=== PATIENT | female | born 1970 | race Hispanic/Latino ===

== ENCOUNTER 2018-01-15 09:43 | Observation (INO) | payer BC, OTHER ==
--- NOTE | 2018-01-15 10:21 | EKG ---
Test Date: 2018-01-15 Test Time: 09:59:21 Government Auditor: BUCKY MEASUREMENT RESULTS: Intervals: Rate: 89 WI: 156 QRSD: 88 QT: 352 QTc: 428 [place]: P: 69 WI: 156 QRS: 4 T: 59 INTERPRETIVE STATEMENTS: Normal sinus rhythm Normal ECG Compared to ECG 03/17/2014 16:21:40 No significant changes Electronically Signed On 01-15-18 10:20:30 CDT by Meir Youngblood
[2018-01-15 10:33] LABS: Absolute Lymphocytes (CBC) 1.5 K/uL (0.7-4.9); Absolute Monocytes 0.5 K/uL (0.1-1.3); Absolute Neutrophil 9.5 K/uL (1.8-8.0); Eosinophils % 0.1 % (0-4.4); Hematocrit 42.2 % (36.0-45.0); Lymphocytes % 12.5 % (15.3-44.8); MCH 29.9 pg (27.0-35.0); MCV 90.6 fL (80-100); MPV 8.3 fL (7.6-11.3); Monocytes % 4.6 % (3.3-12.3); RBC Red Blood Cell Count 4.65 M/uL (3.86-4.86)
[2018-01-15 10:43] LABS: Protime INR 1.04
--- NOTE | 2018-01-15 10:43 | RAD REPORT ---
EXAM DESCRIPTION: Skyla Single View01/15/2018 10:27 am CLINICAL HISTORY: Chest pain COMPARISON: none FINDINGS: The lungs appear clear of acute infiltrate. The heart is normal size IMPRESSION: No acute abnormalities displayed
[2018-01-15 10:58] LABS: Bicarbonate 26 mEq/L (21-31); Glucose Level 87 mg/dL (65-120); Lipase 15 U/L (22-51); Potassium 3.6 mEq/L (3.6-5.0); Sodium Level 139 mEq/L (135-145)
[2018-01-15 11:04] LABS: ALT/SGPT 27 IU/L (10-60); AST/SGOT 26 IU/L (10-42); Albumin 3.9 g/dL (3.2-5.5); Alkaline Phosphatase 60 IU/L (42-121); BUN Blood Urea Nitrogen 15 mg/dL (6-20); Bilirubin Direct 0.1 mg/dL (0-0.2); Bilirubin Total 0.5 mg/dL (0.3-1.2); Creatine Phosphokinase 133 IU/L (22-269); Glomerular Filtration Rate > 90 mL/min (=/>90); Magnesium 1.6 mg/dL (1.8-2.5); Protein, Total 6.9 g/dL (6.0-8.3)
[2018-01-15 11:06] LABS: CKMB Creatine Kinase MB 0.6 ng/ml (0.3-4.0)
[2018-01-15] MEDS ORDERED: ASPIRIN 81 MG CHEWABLE TABLET ONE (11:08)
[2018-01-15] MEDS ORDERED: METOPROLOL TAR 25 MG TAB ONE (11:30)
[2018-01-15] MEDS ORDERED: ONDANSETRON 4 MG/2 ML VIAL ONE (11:30)
[2018-01-15] MEDS ORDERED: MORPHINE 4 MG/ML SYR ONE ×2 (11:30→14:46)
--- NOTE | 2018-01-15 11:31 | ER ---
Nurse's Notes [facility] Name: Nelly Casey Age: 47 yrs Sex: Female : 1970 Arrival Date: 01/15/2018 Time: 09:44 Bed 17 Private MD: Christian Chan H Diagnosis: Chest pain, unspecified;Multiple fractures of ribs, left side-ribs 4 and 5 anteriolaterally Presentation: 01/15 09:53 Presenting complaint: Patient states: continuous L sided chest pain that began 3 days ss ago. Denies injury. Transition of care: patient was not received from another setting of care. Onset of symptoms was January 12, 2018. Care prior to arrival: None. 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 - Social history:: Smoking status: Patient uses tobacco products, smokes one-half pack cigarettes per day. - Family history:: not pertinent. Screenin:26 Abuse screen: Denies threats or abuse. Denies injuries from another. Nutritional aj1 screening: No deficits noted. Tuberculosis screening: No symptoms or risk factors identified. 13:53 Fall Risk No fall in past 12 months (0 pts). No secondary diagnosis (0 pts). IV access aj1 (20 points). Ambulatory Aid- None/Bed Rest/Nurse Assist (0 pts). Gait- Normal/Bed Rest/Wheelchair (0 pts) Mental Status- Oriented to own ability (0 pts). Total Ramon Fall Scale indicates No Risk (0-24 pts). Assessment: 10:21 General: Appears in no apparent distress. uncomfortable, Behavior is calm, cooperative, aj1 appropriate for age. Pain: Complains of pain in left lateral anterior chest and left breast Pain does not radiate. Pain currently is 7 out of 10 on a pain scale. Quality of pain is described as tightness Pain began 2-3 days ago. Is continuous, Alleviated by rest, Aggravated by movement, coughing, deep breathing. Neuro: Level of Consciousness is awake, alert, obeys commands, Oriented to person, place, time, situation, Speech is normal, Facial symmetry appears normal. Cardiovascular: Reports chest pain, nausea, shortness of breath, Denies diaphoresis, lightheadedness, palpitations, syncope, vomiting, Heart tones S1 S2 present Patient's skin is warm and dry. Rhythm is sinus rhythm Chest pain is described as Pain is 7 out of 10 on a pain scale. quality is tightness is located in left anterior chest wall. Respiratory: Reports shortness of breath Airway is patent Respiratory effort is even, unlabored, Respiratory pattern is regular, symmetrical, Breath sounds are clear bilaterally. Denies cough. GI: No signs and/or symptoms were reported involving the gastrointestinal system. : No signs and/or symptoms were reported regarding the genitourinary system. EENT: No signs and/or symptoms were reported regarding the EENT system. Denies nasal congestion, nasal discharge. Derm: No signs and/or symptoms reported regarding the dermatologic system. Skin is pink, warm \T\ dry. normal. Musculoskeletal: No signs and/or symptoms reported regarding the musculoskeletal system. Circulation, motion, and sensation intact. 11:16 Reassessment: Patient appears in no apparent distress at this time. No changes from aj1 previously documented assessment. Patient and/or family updated on plan of care and expected duration. Pain level reassessed. Patient is alert, oriented x 3, equal unlabored respirations, skin warm/dry/pink. 12:06 Reassessment: Patient and/or family updated on plan of care and expected duration. Pain aj1 level reassessed. General: Appears in no apparent distress. uncomfortable, Behavior is calm, cooperative, appropriate for age. Pain: Complains of pain in left breast and left lateral anterior chest Pain does not radiate. Pain currently is 5 out of 10 on a pain scale. Neuro: Level of Consciousness is awake, alert, obeys commands, Oriented to person, place, time, situation, Speech is normal, Facial symmetry appears normal. Cardiovascular: Heart tones S1 S2 present Patient's skin is warm and dry. Rhythm is sinus rhythm. Respiratory: Airway is patent Respiratory effort is even, unlabored, Respiratory pattern is regular, symmetrical. Derm: Skin is pink, warm \T\ dry. normal. Musculoskeletal: Circulation, motion, and sensation intact. 13:15 Reassessment: Patient appears in no apparent distress at this time. No changes from aj1 previously documented assessment. Patient and/or family updated on plan of care and expected duration. Pain level reassessed. Patient is alert, oriented x 3, equal unlabored respirations, skin warm/dry/pink. Vital Signs: 09:55 BP 150 / 83; Pulse 104; Resp 16; Temp 99.2(TE); Pulse Ox 97% on R/A; Weight 70.31 kg; ss Height 5 ft. 6 in. (167.64 cm); Pain 7/10; 10:21 BP 132 / 76; Pulse 93; Resp 18; Pulse Ox 97% on R/A; aj1 11:17 BP 148 / 72; Pulse 88; Resp 17; Pulse Ox 100% on R/A; aj1 12:07 BP 138 / 84; Pulse 91; Resp 18; Pulse Ox 98% on R/A; aj1 13:00 BP 136 / 86; Pulse 80; Resp 18; Pulse Ox 100% on R/A; aj1 14:20 BP 121 / 86; Pulse 75; Resp 19; Temp 98.9(TE); Pulse Ox 97% on R/A; aj1 09:55 Body Mass Index 25.02 (70.31 kg, 167.64 cm) ED Course: 09:44 Patient arrived in ED. as 09:44 Christian Chan DO is Private Physician. as 09:54 Triage completed. ss 09:55 Arm band placed on left wrist. 09:58 Navi Cedillo MD is Attending Physician. [facility] 10:06 Latasha Dietz, RN is Primary Nurse. aj1 10:12 EKG done, by log data technician. reviewed by Navi Cedillo MD. at1 10:25 X-ray completed. Portable x-ray completed in exam room. kw1 10:26 Patient has correct armband on for positive identification. 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 Pulse aj1 ox on. NIBP on. 10:26 No provider procedures requiring assistance completed. Initial lab(s) drawn, by me, deep sent to lab. Inserted saline lock: 18 gauge in right antecubital area, using aseptic technique. Blood collected. Patient maintains SpO2 saturation greater than 95% on room air. 10:27 XRAY Chest (1 view) In Process Unspecified. EDMS 11:[address] via stretcher. 11:28 Raimundo Castro MD is Hospitalizing Provider. chirag 11:37 CT Chest For PE Angio In Process Unspecified. EDMS 11:49 CT completed. Patient tolerated procedure well. Patient moved back from CT. jg1 12:54 Echocardiogram done by proof technician. tc 13:53 Patient admitted, IV remains in place. aj1 14:20 Report given to ERNESTO Bhandari on 4th floor. aj1 Administered Medications: 10:45 Drug: Aspirin 162 mg Route: PO; aj1 11:18 Follow up: Response: No adverse reaction aj1 11:18 Drug: Lopressor 25 mg {Note: BP 148/72 HR 88 prior to administration.} Route: PO; aj1 12:04 Follow up: Response: No adverse reaction aj1 11:18 Drug: Zofran 4 mg Route: IVP; Site: right antecubital; aj1 12:04 Follow up: Response: No adverse reaction aj1 11:19 Drug: morphine 2 mg Route: IVP; Site: right antecubital; aj1 12:04 Follow up: Response: No adverse reaction aj1 12:05 Drug: Lovenox 1 mg/kg Route: Sub-Q; Site: left lower abdomen; aj1 14:22 Follow up: Response: No adverse reaction aj1 12:06 Drug: Magnesium Sulfate 1 grams Route: IVPB; Infused Over: 1 hrs; Site: left aj1 antecubital; 14:23 Follow up: IV Status: Completed infusion; IV Intake: 100ml aj1 14:30 Drug: morphine 2 mg Route: IVP; Site: right antecubital; aj1 14:31 Follow up: Response: No adverse reaction aj1 Intake: 14:23 IV: 100ml; Total: 100ml. aj1 Outcome: 11:30 Decision to Hospitalize by Provider. chirag 15:03 Admitted to Tele accompanied by tech, via wheelchair. aj1 15:03 Condition: stable 15:03 Discharge instructions given to patient, Instructed on the need for admit, Demonstrated understanding of instructions. 15:04 Patient left the ED. aj1 Signatures: Dispatcher [employer] Latasha Dickerson RN RN aj1 Navi Cedillo MD MD cha Garcia, Jessica jg1 Jones, Susan sj Martinez, Amelia as Smirch, Shelby ERNESTO RN ss Elle hernandez, dining room helper EKG Tat1 Barbara Norman, dining room helper EKG Ttc aMdiha Valladares kw1
--- NOTE | 2018-01-15 11:31 | EDPHYS ---
Physician Documentation [facility] Name: Nelly Casey Age: 47 yrs Sex: Female : 1970 Arrival Date: 01/15/2018 Time: 09:44 Bed 17 Private MD: Christian Chan H ED Physician Navi Cedillo HPI: 01/15 11:01 This 47 yrs old Female presents to ER via Ambulatory with complaints of Chest chirag Pain. 11:01 The patient or guardian reports chest pain that is located primarily in the anterior chirag chest wall. Onset: 3 day(s) ago. The pain radiates to Associated signs and symptoms: The patient has no apparent associated signs or symptoms. The chest pain is described as squeezing. Duration: The patient or guardian reports multiple episodes, with no pattern. Modifying factors: The symptoms are alleviated by remaining still, the symptoms are aggravated by movement, palpation of area, walking. Severity of pain: At its worst the pain was mild moderate in the emergency department the pain is unchanged. The patient has not experienced similar symptoms in the past. 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 - Social history:: Smoking status: Patient uses tobacco products, smokes one-half pack cigarettes per day. - Family history:: not pertinent. ROS: 11:01 Constitutional: Negative for fever, chills, and weight loss, Eyes: Negative for injury, chirag pain, redness, and discharge, ENT: Negative for injury, pain, and discharge, Neck: Negative for injury, pain, and swelling, Respiratory: Negative for shortness of breath, cough, wheezing, and pleuritic chest pain, Abdomen/GI: Negative for abdominal pain, nausea, vomiting, diarrhea, and constipation, Back: Negative for injury and pain, : Negative for injury, bleeding, discharge, and swelling, MS/Extremity: Negative for injury and deformity, Skin: Negative for injury, rash, and discoloration, Neuro: Negative for headache, weakness, numbness, tingling, and seizure, Psych: Negative for depression, anxiety, suicide ideation, homicidal ideation, and hallucinations, Allergy/Immunology: Negative for hives, rash, and allergies, Endocrine: Negative for neck swelling, polydipsia, polyuria, polyphagia, and marked weight changes, Hematologic/Lymphatic: Negative for swollen nodes, abnormal bleeding, and unusual bruising. 11:01 Cardiovascular: Positive for chest pain. Exam: 11:01 Constitutional: This is a well developed, well nourished patient who is awake, alert, chirag and in no acute distress. Head/Face: Normocephalic, atraumatic. Eyes: Pupils equal round and reactive to light, extra-ocular motions intact. Lids and lashes normal. Conjunctiva and sclera are non-icteric and not injected. Cornea within normal limits. Periorbital areas with no swelling, redness, or edema. ENT: Nares patent. No nasal discharge, no septal abnormalities noted. Tympanic membranes are normal and external auditory canals are clear. Oropharynx with no redness, swelling, or masses, exudates, or evidence of obstruction, uvula midline. Mucous membranes moist. Neck: Trachea midline, no thyromegaly or masses palpated, and no cervical lymphadenopathy. Supple, full range of motion without nuchal rigidity, or vertebral point tenderness. No Meningismus. Cardiovascular: Regular rate and rhythm with a normal S1 and S2. No gallops, murmurs, or rubs. Normal PMI, no JVD. No pulse deficits. Respiratory: Lungs have equal breath sounds bilaterally, clear to auscultation and percussion. No rales, rhonchi or wheezes noted. No increased work of breathing, no retractions or nasal flaring. Abdomen/GI: Soft, non-tender, with normal bowel sounds. No distension or tympany. No guarding or rebound. No evidence of tenderness throughout. Back: No spinal tenderness. No costovertebral tenderness. Full range of motion. Skin: Warm, dry with normal turgor. Normal color with no rashes, no lesions, and no evidence of cellulitis. MS/ Extremity: Pulses equal, no cyanosis. Neurovascular intact. Full, normal range of motion. Neuro: Awake and alert, GCS 15, oriented to person, place, time, and situation. Cranial nerves II-XII grossly intact. Motor strength 5/5 in all extremities. Sensory grossly intact. Cerebellar exam normal. Normal gait. Psych: Awake, alert, with orientation to person, place and time. Behavior, mood, and affect are within normal limits. 11:01 Chest/axilla: Inspection: normal, Palpation: tenderness, that is mild, of the anterior aspect of right upper chest, anterior aspect of left upper chest, xyphoid area, mid-sternal area, right breast and left breast. Vital Signs: 09:55 BP 150 / 83; Pulse 104; Resp 16; Temp 99.2(TE); Pulse Ox 97% on R/A; Weight 70.31 kg; ss Height 5 ft. 6 in. (167.64 cm); Pain 7/10; 10:21 BP 132 / 76; Pulse 93; Resp 18; Pulse Ox 97% on R/A; aj1 11:17 BP 148 / 72; Pulse 88; Resp 17; Pulse Ox 100% on R/A; aj1 12:07 BP 138 / 84; Pulse 91; Resp 18; Pulse Ox 98% on R/A; aj1 13:00 BP 136 / 86; Pulse 80; Resp 18; Pulse Ox 100% on R/A; aj1 14:20 BP 121 / 86; Pulse 75; Resp 19; Temp 98.9(TE); Pulse Ox 97% on R/A; aj1 09:55 Body Mass Index 25.02 (70.31 kg, 167.64 cm) ss MDM: 09:58 Patient medically screened. [facility] 11:05 Data reviewed: vital signs, nurses notes, lab test result(s), EKG, radiologic studies, chirag plain films. 01/15 09:59 Order name: Basic Metabolic Panel; Complete Time: 11:16 [facility] 01/15 09:59 Order name: BNP; Complete Time: 11:16 [facility] 01/15 09:59 Order name: CBC with Diff; Complete Time: 11:16 [facility] 01/15 09:59 Order name: Ckmb; Complete Time: 11:16 [facility] 01/15 09:59 Order name: CPK; Complete Time: 11:16 [facility] 01/15 09:59 Order name: LFT's; Complete Time: 11:16 [facility] 01/15 09:59 Order name: Magnesium; Complete Time: 11:16 [facility] 01/15 09:59 Order name: PT-INR; Complete Time: 11:16 [facility] 01/15 09:59 Order name: Ptt, Activated; Complete Time: 11:16 [facility] 01/15 09:59 Order name: Troponin (emerg Dept Use Only); Complete Time: 11:16 [facility] 01/15 09:59 Order name: XRAY Chest (1 view); Complete Time: 11:16 [facility] 01/15 09:59 Order name: Lipase; Complete Time: 11:16 [facility] 01/15 10:01 Order name: Urine Culture [facility] 01/15 11:17 Order name: CT Chest For PE Angio; Complete Time: 11:53 [facility] 01/15 09:56 Order name: EKG; Complete Time: 09:56 01/15 09:56 Order name: EKG - Nurse/Tech; Complete Time: 10:21 01/15 09:59 Order name: Cardiac monitoring; Complete Time: 10:20 [facility] 01/15 09:59 Order name: IV Saline Lock; Complete Time: 10:20 [facility] 01/15 09:59 Order name: Labs collected and sent; Complete Time: 10:20 [facility] 01/15 09:59 Order name: O2 Per Protocol; Complete Time: 10:20 [facility] 01/15 11:35 Order name: CONS Physician Consult [facility] 01/15 11:35 Order name: Echo with Doppler [facility] 01/15 09:59 Order name: O2 Sat Monitoring; Complete Time: 10:20 [facility] Administered Medications: 10:45 Drug: Aspirin 162 mg Route: PO; aj1 11:18 Follow up: Response: No adverse reaction aj1 11:18 Drug: Lopressor 25 mg {Note: BP 148/72 HR 88 prior to administration.} Route: PO; aj1 12:04 Follow up: Response: No adverse reaction aj1 11:18 Drug: Zofran 4 mg Route: IVP; Site: right antecubital; aj1 12:04 Follow up: Response: No adverse reaction aj1 11:19 Drug: morphine 2 mg Route: IVP; Site: right antecubital; aj1 12:04 Follow up: Response: No adverse reaction aj1 12:05 Drug: Lovenox 1 mg/kg Route: Sub-Q; Site: left lower abdomen; aj1 14:22 Follow up: Response: No adverse reaction aj1 12:06 Drug: Magnesium Sulfate 1 grams Route: IVPB; Infused Over: 1 hrs; Site: left aj1 antecubital; 14:23 Follow up: IV Status: Completed infusion; IV Intake: 100ml [facility] 14:30 Drug: morphine 2 mg Route: IVP; Site: right antecubital; [facility] 14:31 Follow up: Response: No adverse reaction aj1 Disposition: 01/15/18 11:30 Hospitalization ordered by Raimundo Castro for Observation. Preliminary diagnosis are Chest pain, unspecified, Multiple fractures of ribs, left side - ribs 4 and 5 anteriolaterally. - Bed requested for Telemetry/MedSurg (observation). - Status is Observation. aj1 - Condition is Stable. - Problem is new. - Symptoms have improved. UTI on Admission? No Signatures: Dispatcher [employer] Latasha Dickerson RN RN aj Janie Black RN RN dw Anderson, Corey, MD MD cha Smirch, Shelby, RN RN ss
--- NOTE | 2018-01-15 11:48 | RAD REPORT ---
EXAM DESCRIPTION: CT - Chest For Pe Angio - 01/15/2018 11:37 am CLINICAL HISTORY: Chest pain. COMPARISON: None. TECHNIQUE: CT angiogram of the pulmonary arteries was performed with MIP. All CT scans are performed using dose optimization technique as appropriate and may include automated exposure control or mA/KV adjustment according to patient size. FINDINGS: No evidence of pulmonary thromboembolism. No acute aortic finding demonstrated. The lungs are clear. No significant pericardial or pleural fluid. The left anterolateral fourth and fifth ribs demonstrate minimally displaced fractures. IMPRESSION: No evidence of pulmonary thromboembolism. Minimally displaced left anterolateral fourth and fifth rib fractures.
[2018-01-15] MEDS ORDERED: MAGNESIUM SULFATE 1 gm IVPB 1 GM/100 ML BAG IV ONE (12:12)
[2018-01-15] MEDS ORDERED: ENOXAPARIN 80 MG/0.8 ML SQ ONE (12:12)
--- NOTE | 2018-01-15 13:43 | ECHO ---
HEIGHT: 5 ft 6 in WEIGHT: 155 lb oz DATE OF STUDY: 01/15/[address]: Navi Cedillo MD 2-DIMENSIONAL: YES M.MODE: YES DOPPLER: YES COLOR FLOW: YES TDS: NO PORTABLE: YES DEFINITY: NO BUBBLE STUDY: NO DIAGNOSIS: CHEST PAIN CARDIAC HISTORY: CATHERIZATION: NO SURGERY: NO PROSTHETIC VALVE: NO PACEMAKER: NO MEASUREMENTS (cm) DIASTOLIC (NORMALS) SYSTOLIC (NORMALS) IVSd 0.8 (0.6-1.2) LA Diam 3.1 (1.9-4.0) LVEF 77% LVIDd 4.1 (3.5-5.7) LVIDs 2.3 (2.0-3.5) %FS 45% LVPWd 0.9 (0.6-1.2) Ao Diam 2.5 (2.0-3.7) 2 DIMENSIONAL ASSESSMENT: RIGHT ATRIUM: NORMAL LEFT ATRIUM: NORMAL RIGHT VENTRICLE: NORMAL LEFT VENTRICLE: NORMAL TRICUSPID VALVE: NORMAL MITRAL VALVE: NORMAL PULMONIC VALVE: NORMAL AORTIC VALVE: NORMAL PERICARDIAL EFFUSION: NONE AORTIC ROOT: NORMAL LEFT VENTRICULAR WALL MOTION: NORMAL. DOPPLER/COLOR FLOW: NORMAL. COMMENTS: NORMAL 2D ECHO WITH DOPPLER. TECHNOLOGIST: DEVIN YUEN
[2018-01-15 15:27] VITALS: BMI 25.0
[2018-01-15] MEDS ORDERED: MORPHINE 4 MG/ML SYR IV PRN (15:33)
[2018-01-15] MEDS ORDERED: INFLUENZA VACCINE (for 3y+) 0.5 ML DOSE IMVAC ONE (16:00)
--- NOTE | 2018-01-15 16:22 | P.HP ---
Certification for Inpatient Patient admitted to: Observation With expected LOS: <2 Midnights Patient will require the following post-hospital care: None Practitioner: I am a practitioner with admitting privileges, knowledge of patient current condition, hospital course, and medical plan of care. Services: Services provided to patient in accordance with Admission requirements found in Title 42 Section 412.3 of the Code of Federal Regulations Patient History Date of Service: 01/15/18 Reason for admission: Chest pain History of Present Illness: 47-year-old female with a history depression and strong family history of myocardial infraction who presents to emergency room because of persistent chest pain to the left side of chest. The patient stated that she fell from stairs Saturday. An she start having left-sided chest pain since the fall. She describes chest pain as a dull located to the left side of chest worsening on a deep breath. She had no [id number]. She had no prior history of chest pain and be full the accidents. Her brother of myocardial infraction at age 40s. Allergies No Known Allergies Allergy (Unverified 01/15/18 12:34) Home Medications: Bupropion *Xl* [Wellbutrin XL] 150 mg PO BID 01/15/18 - Past Medical/Surgical History Has patient received pneumonia vaccine in the past: No -: IBS -: Depression -: Neck surgery 2011 -: Partial hysterectomy -: 3 c-sections - Family History Mother -: Diabetes Father -: Heart disease Brother -: Heart disease - Social History Smoking Status: Current every day smoker Alcohol use: Yes CD- Drugs: No Place of Residence: Home Review of Systems 10-point ROS is otherwise unremarkable Physical Examination - Vital Signs Temperature: 98.9 F Blood Pressure: 121/86 Pulse: 75 Respirations: 19 - Physical Exam General: Alert, In no apparent distress HEENT: Atraumatic, PERRLA, Mucous membr. moist/pink, EOMI, Sclerae nonicteric Neck: Supple, 2+ carotid pulse no bruit, No LAD, Without JVD or thyroid abnormality Respiratory: Clear to auscultation bilaterally, Normal air movement Cardiovascular: Regular rate/rhythm, Normal S1 S2 Gastrointestinal: Normal bowel sounds, No tenderness Musculoskeletal: No tenderness Integumentary: No rashes Neurological: Normal gait, Normal speech, Normal strength at 5/5 x4 extr, Normal tone, Normal affect Lymphatics: No axilla or inguinal lymphadenopathy - Studies Laboratory Data (last 24 hrs) 01/15/18 10:17: PT 12.3, INR 1.04, APTT 26.4 01/15/18 10:17: WBC 11.7 H, Hgb 13.9, Hct 42.2, Plt Count 268 01/15/18 10:17: B-Natriuretic Peptide 17 01/15/18 10:17: Sodium 139, Potassium 3.6, BUN 15, Creatinine 0.60, Glucose 87, Magnesium 1.6 L, Total Bilirubin 0.5, AST 26, ALT 27, Alkaline Phosphatase 60, Lipase 15 L Assessment and Plan - Problems (Diagnosis) (1) Chest pain Current Visit: Yes Status: Acute Qualifiers: Chest pain type: chest pain on breathing Qualified Code(s): R07.1 - Chest pain on breathing; R07.81 - Pleurodynia (2) Depression Current Visit: Yes Status: Acute Qualifiers: Depression Type: unspecified Qualified Code(s): F32.9 - Major depressive disorder, single episode, unspecified (3) Hypomagnesemia Current Visit: Yes Status: Acute (4) Family history of myocardial infarction Current Visit: Yes Status: Acute - Plan --aspirin --pain medicine --resume home medicine --troponins every 6 hr --echocardiogram and chest CT angiogram has been done ready in the emergency room which are unremarkable --consult Cardiology --likely discharge home tomorrow on pain medicine - Advance Directives Does patient have a Living Will: No Does patient have a Durable POA for Healthcare: No
[2018-01-15] MEDS ORDERED: ZOLPIDEM TARTRATE 5 MG TABLET PO PRN (16:24)
--- NOTE | 2018-01-15 19:37 | CON ---
Chief Complaint: Chest pain. History Of Present Illness: Mrs. Casey started having chest pain when she fell 3 days ago. She w as walking down a short flight of stairs or steps, fell to the ground. The first thing that hit the ground was her gluteus sandi. She is not aware of hitting her chest, but right then is when her ch est started hurting. Since then, if she takes a deep breath, moves the wrong way, touches, pushes de eply over the left breast, it hurts. The CAT scan has revealed some abnormalities of the ribs, right side. The CAT scan was done to look for pulmonary embolus and dissection that was negative, but min imally displaced left anterolateral fourth and fifth ribs are fractured. There is not a mention of o steoporosis. The patient is a half kpeb-[id number] cigarette smoker. She does not have diabetes or hyp ertension or dyslipidemia. She uses rare alcohol. No illegal drugs. Never had myocardial infarctio n, stroke, hospitalizations for any vascular disease. Never had chest pain before she fell 3 days ag o. Physical Examination: General: She is alert, oriented, pleasant, not in distress. HEENT: Normal. Lungs: Clear. Cardiac Exam: Normal. Abdomen: Soft. Extremities: Normal. Distal pulses are normal. Vital Signs: Blood pressure 132/76, pulse 93, O2 saturation 97% on room air. When you palpate the a brad of interest, it causes her to wince in pain, reproduces the pain. Body mass index is 25. Weight 70.3 kg. Height 5 feet 6 inches. Diagnostic Data: EKG is normal. An echocardiogram also is normal. Impression: This patient is not having pain from any cardiac source, but she does have displaced rib fractures that are causing the pain. We can do a stress test. If it is necessary. I think it migh t be okay to just try and relieve her pain and find some way to have her deal with the pain. We reas sured if she is still here. Tomorrow, we can do a non-nuclear stress tests and make sure she does no t have ischemic heart disease. She has been instructed on smoking cessation. We should look into wh ether she has osteoporosis to get rib fractures from falling on her butt and look into other risk fac tors to make sure we can practice preventive medicine as good as possible. Thank you very much for your kind referral of Mrs. Casey. I will follow her with you. MARK Voice ID: [id number] Report ID: [id number]
[2018-01-15 20:54] VITALS: O2SAT 98
[2018-01-15] MEDS: BUPROPION HCL XL 150 MG TAB PO SCH (21:06)
[2018-01-16 04:40] LABS: Urine Appearance CLOUDY; Urine Bilirubin NEGATIVE (NEG); Urine Blood 1+ (NEG); Urine Color YELLOW; Urine Glucose NEGATIVE (NEG); Urine Protein NEGATIVE (NEG)
[2018-01-16] MEDS: HYDROCODONE/APAP 10/325 TAB PO PRN ×3 (04:40→14:25)
[2018-01-16 04:56] LABS: Urine Microscopic Reflex ORDER UMIC
[2018-01-16 05:24] LABS: Urine Bacteria 20-50 /HPF (<20); Urine Culture Reflex Order NOT NEEDED; Urine Mucus LIGHT /HPF (NONE SEEN)
[2018-01-16] MEDS: BUPROPION HCL XL 150 MG TAB PO SCH (08:50)
[2018-01-16] MEDS ORDERED: ENOXAPARIN 40 MG/0.4 ML SQ SCH (09:00)
--- NOTE | 2018-01-16 12:01 | CON ---
Admitted to Dr. Castro's service. History Of Present Illness: Ms. Casey is 47. No previous cardiac history. Has history of depres kaylynn and irritable bowel syndrome. Had fallen on her back, came into the emergency room with very at ypical fleeting chest pain throughout the chest, left lateral, mid epigastric, left shoulder, right s houlder. Normal EKG, normal chest x-ray, normal CTA. She was found to have some rib fractures. Neg ative BNP, troponin, CPK-MB. Still having chest pain now. Stress test is pending. Past Medical History: Includes depression and IBS. Allergies: NEGATIVE. Review of Systems: Negative. Social History: Negative. Family History: Positive for heart disease. Her brother at 49 from an MD. Her father has delia nary artery disease as well. Medications At Home: Include Wellbutrin. Physical Examination: Vital Signs: Stable, afebrile. HEENT: Negative. Neck: Supple. No bruit. Chest: Clear. Cardiac: Normal. Abdomen: Benign. Extremities: No clubbing, cyanosis, or edema. Diagnostic Data: All within normal limits. An echocardiogram was done, was within normal limits. Impression And Plan: Atypical chest pain, most likely musculoskeletal and pleuritic and may be secon essie to the rib fractures as well. The stress test is pending and that is mostly because of her fami ly history. If this is normal, she can go home. TIANNA/LUTHER Voice ID: [id number] Report ID: [id number]
[2018-01-16 15:00] VITALS: BP 129/72; TEMP 98.4
--- NOTE | 2018-01-16 17:14 | TREADMILL ---
70% H.R.: 121 85% H.R.: 147 90% H.R.: 156 100% H.R.: 173 DX: CHEST PAIN Date of Study: 01/16/2018 Ht: 5' 6 " Wt: 155 lb 0 oz Consulting Physician: MURALI MEDICATIONS: NORCO, WELLBUTRIN, LOVENOX, AMBIEN HISTORY: 47 YEAR OLD FEMALE WITH COMPLAINTS OF CHEST PAIN. MEDICAL HISTORY: IRRITABLE BOWEL SYNDROME, DEPRESSION AND A SMOKER, SMOKES ONE PACK PER DAY. PHYSICIAL EXAMINATION: RESTING B.P.: 145/92 RESTING H.R.: 82 RESTING EKG: NORMAL PROTOCOL: PIYUSH ROUTINE EXERCISE TIME: 7:21 MAXIMUM HEART RATE: 166 95 % OF PREDICTED B.P. AT PEAK STRESS: 138/118 POST 5 MINUTES BP: 128/85 H.R. AT 1 MINUTE POST EXERCISE: 139 IMPRESSION: STRES TEST STOPPED DUE TO FATIGUE AND TARGET HEART RATE REACHED PER PROTOCOL. NO SUPRAVENTRICULAR TACHYCARDIA. NO VENTRICULAR TACHYCARDIA. NO PREMATURE VENTRICULAR COMPLEXES. CHEST PAIN FIVE OUT OF TEN ON PAIN SCALE.
--- NOTE | 2018-01-16 17:25 | P.DS ---
Admission Date: 01/15/18 Discharge Date: 01/16/18 Disposition: ROUTINE DISCHARGE Discharge Condition: FAIR Reason for Admission: Chest pain - Problems (1) Chest pain Onset Date: 01/16/18 Status: Acute Qualifiers: Chest pain type: chest pain on breathing Qualified Code(s): R07.1 - Chest pain on breathing; R07.81 - Pleurodynia (2) Depression Onset Date: 01/16/18 Status: Acute Qualifiers: Depression Type: unspecified Qualified Code(s): F32.9 - Major depressive disorder, single episode, unspecified (3) Hypomagnesemia Onset Date: 01/16/18 Status: Acute (4) Family history of myocardial infarction Status: Acute Brief History of Present Illness: 47-year-old female with a history depression and strong family history of myocardial infraction who presents to emergency room because of persistent chest pain to the left side of chest. The patient stated that she fell from stairs Saturday. An she start having left-sided chest pain since the fall. She describes chest pain as a dull located to the left side of chest worsening on a deep breath. She had no [id number]-ul-[id number]. She had no prior history of chest pain and be full the accidents. Her brother of myocardial infraction at age 40s. Hospital Course: The patient admitted hospital for chest pain. Her troponin was negative for [address] angiogram demonstrate no evidence of pulmonary embolism. Echocardiogram shows no evidence of wall abnormality is. The patient also underwent a stress test which were unremarkable for stress induced ischemia. The patient is discharged home in stable condition on [place] for pain control. The patient developed no complication during this hospitalization. Vital Signs/Physical Exam: Temp Pulse Resp BP Pulse Ox 98.4 F 86 16 129/72 97 01/16/18 12:00 01/16/18 12:00 01/16/18 12:00 01/16/18 12:00 01/16/18 12:00 General: Alert, In no apparent distress HEENT: Atraumatic, PERRLA, EOMI Neck: Supple, JVD not distended Respiratory: Clear to auscultation bilaterally, Normal air movement Cardiovascular: Regular rate/rhythm, Normal S1 S2 Gastrointestinal: Normal bowel sounds, No tenderness Musculoskeletal: No tenderness Integumentary: No rashes Neurological: Normal speech, Normal tone, Normal affect Lymphatics: No axilla or inguinal lymphadenopathy Laboratory Data at Discharge: WBC 11.7 K/uL (4.3-10.9) H 01/15/18 10:17 Hgb 13.9 g/dL (12.0-15.0) 01/15/18 10:17 Hct 42.2 % (36.0-45.0) 01/15/18 10:17 Plt Count 268 K/uL (152-406) 01/15/18 10:17 PT 12.3 SECONDS (9.5-12.5) 01/15/18 10:17 INR 1.04 01/15/18 10:17 APTT 26.4 SECONDS (24.3-36.9) 01/15/18 10:17 Sodium 139 mEq/L (135-145) 01/15/18 10:17 Potassium 3.6 mEq/L (3.6-5.0) 01/15/18 10:17 BUN 15 mg/dL (6-20) 01/15/18 10:17 Creatinine 0.60 mg/dL (0.44-1.00) 01/15/18 10:17 Glucose 87 mg/dL (65-120) 01/15/18 10:17 Magnesium 1.6 mg/dL (1.8-2.5) L 01/15/18 10:17 Total Bilirubin 0.5 mg/dL (0.3-1.2) 01/15/18 10:17 AST 26 IU/L (10-42) 01/15/18 10:17 ALT 27 IU/L (10-60) 01/15/18 10:17 Alkaline Phosphatase 60 IU/L (42-121) 01/15/18 10:17 Troponin I < 0.03 ng/mL (<0.03) 01/16/18 07:29 B-Natriuretic Peptide 17 pg/ml (<=100) 01/15/18 10:17 Triglycerides Cancelled 01/17/18 05:00 Cholesterol Cancelled 01/17/18 05:00 HDL Cholesterol Cancelled 01/17/18 05:00 Cholesterol/HDL Ratio Cancelled 01/17/18 05:00 Lipase 15 U/L (22-51) L 01/15/18 10:17 Home Medications: Bupropion *Xl* [Wellbutrin XL*] 150 mg PO BID 01/15/18 Hydrocodone 10/APAP 325 [[place]ulkner 10/325*] 1 tab PO Q4HP PRN #10 tab 01/16/18 Magnesium Oxide [Mag 0X*] 400 mg PO BID #60 tab 01/16/18 New Medications: Hydrocodone 10/APAP 325 [[place]ulkner 10/325*] 1 tab PO Q4HP PRN #10 tab PRN Reason: Pain Mild To Moderate Magnesium Oxide [Mag 0X*] 400 mg PO BID #60 tab Diet: Regular Activity: Ad luc Time spent managing pt's care (in minutes): 15
== END 2018-01-16 15:02 | disposition home or self-care (01) ==
LOC: ER 09:43 → ERHOLD 11:32 → 2ND 14:25
PROVIDERS: ADMIT Internal Medicine Hematology & Oncology; ATTEND Internal Medicine Hematology & Oncology
DX: R07.9 Chest pain, unspecified (principal); F32.9 Major depressive disorder, single episode, unspecified; E83.42 Hypomagnesemia; Z82.49 Family history of ischemic heart disease and other diseases of the circulatory system; F17.210 Nicotine dependence, cigarettes, uncomplicated
CPT/HCPCS: 36415; 71045; 71275; 80048; 80076; 81003; 81015; 82550; 82553; 83690; 83735; 83880; 84484; 85025; 85610; 85730; 93005; 93017; 93306; 96365; 96366; 96372; 96375; 99285; G0378; J1650; J2405; J3475; Q9967

== ENCOUNTER 2019-02-23 15:49 | Emergency (ER) | payer BC, OTHER ==
[2019-02-23] MEDS ORDERED: ONDANSETRON 4 MG (ODT) TAB ONE (18:36)
[2019-02-23] MEDS ORDERED: CYCLOBENZAPRINE 10 MG TAB ONE (18:36)
[2019-02-23] MEDS ORDERED: KETOROLAC 30 MG/ML INJ ONE (18:36)
[2019-02-23 19:38] LABS: Urine Bacteria <20 /HPF (<20); Urine Culture Reflex Order NOT NEEDED; Urine Mucus 1+ /HPF (NONE SEEN); Urine RBC <5 /HPF (NONE SEEN)
[2019-02-23 19:49] LABS: Urine Blood TRACE (NEG); Urine Glucose NEGATIVE (NEG); Urine Protein NEGATIVE (NEG); Urine Specific Gravity 1.015 (1.005-1.030)
--- NOTE | 2019-02-23 19:59 | EDPHYS ---
Physician Documentation [facility] Name: Nelly Casey Age: 48 yrs Sex: Female : 1970 Arrival Date: 02/23/2019 Time: 15:54 Bed 16 Private MD: Christian Chan H ED Physician Navi Cedillo HPI: 02/23 18:00 This 48 yrs old Female presents to ER via Ambulatory with complaints of Back jr8 Pain, Vomiting. 18:00 The patient presents with pain that is acute, with no known mechanism of injury. The jr8 symptoms are located in the low back. Onset: The symptoms/episode began/occurred gradually, yesterday. The pain radiates to the low back area, left low back and right low back, to the right leg and left leg. Associated signs and symptoms: Pertinent positives: nausea, vomiting, Pertinent negatives: abdominal pain, dysuria, headache, hematuria, incontinence, numbness, tingling, urinary retention, weakness. The problem was sustained from a chronic condition. Modifying factors: The patient symptoms are alleviated by nothing, the patient symptoms are aggravated by sitting. Severity of symptoms: in the emergency department the symptoms are unchanged, despite home interventions, a " 9" out of "10". The patient has experienced similar episodes in the past, multiple times, but today's symptoms are worse, more painful. The patient has been recently seen by a physician: the patient's primary care provider. Patient states she has been seeing her PCP for lower back pain since October w/out imaging done. This episode worse than previous ones, but symptoms are similar. Patient took her home medications this morning without improvement. Denies numbness, tingling, incontinence, constipation, localized swelling or warmth, or weakness. RECORDS TECH: 18:36 LMP N/A - Hysterectomy hb Historical: - Allergies: 16:01 No Known Allergies; ss - Home Meds: 16:55 Wellbutrin Oral [Active]; hj - PMHx: 16:01 Depression; GERD; IBS; ss - PSHx: 16:01 Disc surgery; ; Hysterectomy; ss - Immunization history:: Adult Immunizations up to date. - Social history:: Smoking status: Patient uses tobacco products, smokes one-half pack cigarettes per day. - Ebola Screening: : Patient denies exposure to infectious person Patient denies travel to an Ebola-affected area in the 21 days before illness onset. ROS: 18:00 Constitutional: Negative for fever, chills, and weight loss, Neck: Negative for injury, jr8 pain, and swelling, Cardiovascular: Negative for chest pain, palpitations, and edema, Respiratory: Negative for shortness of breath, cough, wheezing, and pleuritic chest pain, Abdomen/GI: Negative for abdominal pain, nausea, vomiting, diarrhea, and constipation, MS/Extremity: Negative for injury and deformity, Skin: Negative for injury, rash, and discoloration, Neuro: Negative for headache, weakness, numbness, tingling, and seizure, Psych: Negative for depression, anxiety, suicide ideation, homicidal ideation, and hallucinations. 18:00 Back: Positive for pain at rest, pain with movement, radiated pain, Negative for decreased range of motion. Exam: 18:49 Constitutional: This is a well developed, well nourished patient who is awake, alert, jr8 and in no acute distress. Neck: Trachea midline, no thyromegaly or masses palpated, and no cervical lymphadenopathy. Supple, full range of motion without nuchal rigidity, or vertebral point tenderness. No Meningismus. Chest/axilla: Normal chest wall appearance and motion. Nontender with no deformity. No lesions are appreciated. Cardiovascular: Regular rate and rhythm with a normal S1 and S2. No gallops, murmurs, or rubs. Normal PMI, no JVD. No pulse deficits. Respiratory: Lungs have equal breath sounds bilaterally, clear to auscultation and percussion. No rales, rhonchi or wheezes noted. No increased work of breathing, no retractions or nasal flaring. Abdomen/GI: Soft, non-tender, with normal bowel sounds. No distension or tympany. No guarding or rebound. No evidence of tenderness throughout. Skin: Warm, dry with normal turgor. Normal color with no rashes, no lesions, and no evidence of cellulitis. MS/ Extremity: Pulses equal, no cyanosis. Neurovascular intact. Full, normal range of motion. Neuro: Awake and alert, GCS 15, oriented to person, place, time, and situation. Cranial nerves II-XII grossly intact. Motor strength 5/5 in all extremities. Sensory grossly intact. Cerebellar exam normal. Normal gait. 18:49 Back: pain, that is severe, of the lumbar area and left low back, ROM is painful, with rotation to the right, with rotation to the left, with flexion, scoliosis that is moderate, CVA tenderness, is absent, vertebral tenderness, is not appreciated, muscle spasm, is not present, Straight leg raises: right lower extremity illicits pain, at 75 degrees, left lower extremity illicits pain, at 75 degrees. 18:49 Neuro: Motor: is normal, Sensation: is normal, Deep tendon reflexes are 2+ (normal) in the right patellar and left patellar, Abnormal movements: there are no abnormal movements. Vital Signs: 15:57 BP 130 / 77; Pulse 98; Resp 16; Temp 99.0(TE); Pulse Ox 99% on R/A; Weight 70.31 kg; ss Height 5 ft. 6 in. (167.64 cm); Pain 8/10; 16:50 BP 123 / 79; Pulse 81; Resp 18; Pulse Ox 99% on R/A; Pain 8/10; hj 18:48 BP 117 / 67; Pulse 69; Resp 18; Pulse Ox 99% on R/A; hj 19:05 BP 107 / 65; Pulse 73; Resp 17; Temp 98.6; Pulse Ox 100% on R/A; Pain 5/10; rr5 19:49 BP 144 / 93; Pulse 66; Resp 17 S; Pulse Ox 99% on R/A; jd3 15:57 Body Mass Index 25.02 (70.31 kg, 167.64 cm) MDM: 17:33 Patient medically screened. jr8 19:43 Special discussion: Patient has no saddle anesthesia, incontinence, constipation or jr8 urinary retention, fever, weakness, inability to walk or decreased ROM in extremities, no paresthesia, and no focal weakness. No indications for emergency MRI.. 19:44 Differential diagnosis: chronic back pain, Scoliosis sprain. Data reviewed: vital jr8 signs, nurses notes, lab test result(s), urinalysis, and as a result, I will discharge patient. Counseling: I had a detailed discussion with the patient and/or guardian regarding: the historical points, exam findings, and any diagnostic results supporting the discharge/admit diagnosis, lab results, the need for outpatient follow up, a family practitioner, to return to the emergency department if symptoms worsen or persist or if there are any questions or concerns that arise at home. ED course: Patient reports relief of nausea and pain with oral medication. Patient has tolerated PO challenge well. Spoke with patient regarding no indications at this time for imaging. Patient states she has an appointment with her PCP on Saturday and will speak to PCP about further imaging if pain not resolved. . 02/23 18:13 Order name: Urine Microscopic Only; Complete Time: 19:52 jr8 02/23 18:23 Order name: Urine Dipstick--Ancillary (enter results); Complete Time: 19:52 bd 02/23 18:13 Order name: Urine Dipstick-Ancillary (obtain specimen); Complete Time: 18:35 jr8 02/23 18:15 Order name: PO challenge; Complete Time: 18:17 jr8 Administered Medications: 18:35 Drug: Zofran 4 mg Route: PO; hb 18:51 Follow up: Response: No adverse reaction; Nausea is decreased hj 18:35 Drug: TORadol - Ketorolac 15 mg Route: IM; Site: left deltoid; hb 18:50 Follow up: Response: No adverse reaction; Pain is decreased hj 18:35 Drug: Flexeril 10 mg Route: PO; hb 18:50 Follow up: Response: No adverse reaction hj Disposition: 02/24 07:00 Co-signature as Attending Physician, Navi Cedillo MD I agree with the assessment and chirag plan of care. Disposition: 02/23/19 19:58 Discharged to Home. Impression: Low back pain, Vomiting. - Condition is Stable. - Discharge Instructions: Back Pain, Adult, Musculoskeletal Pain, Back Exercises, [id number]-[id number], Heat Therapy. - Prescriptions for Mobic 15 mg Oral tablet - take 1 tablet by ORAL route once daily As needed; 20 tablet. Zofran 4 mg Oral Tablet - take 1 tablet by ORAL route every 12 hours As needed; 20 tablet. Cyclobenzaprine 10 mg Oral Tablet - take 1 tablet by ORAL route every 8 hours As needed; 30 tablet. Medrol (Sagar) 4 mg Oral Tablets, Dose Pack - take 1 tablet by ORAL route as directed - follow package instructions; 1 packet. - Medication Reconciliation Form, Thank You Letter, Antibiotic Education, Prescription Opioid Use form. - Follow up: Private Physician; When: 2 - 3 days; Reason: Recheck today's complaints, Continuance of care, Re-evaluation by your physician. - Problem is new. - Symptoms have improved. Signatures: Dispatcher [employer] EDMS Navi Cedillo MD MD cha Smirch, Shelby, RN RN Renzo Hutchinson PA PA jr8 Ted Santillan, RN RN Sahara Nolan RN RN Ash Dorantes RN RN jd3 Corrections: (The following items were deleted from the chart) 02/23 18:48 18:00 Patient states she has been seeing her PCP for lower back pain since October jr8 w/out imaging done. This episode worse than previous ones, but symptoms are similar. Patient took her home medications this morning without improvement. jr8 20:27 19:58 02/23/2019 19:58 Discharged to Home. Impression: Low back pain; Vomiting. jd3 Condition is Stable. Forms are Medication Reconciliation Form, Thank You Letter, Antibiotic Education, Prescription Opioid Use. Follow up: Private Physician; When: 2 - 3 days; Reason: Recheck today's complaints, Continuance of care, Re-evaluation by your physician. Problem is new. Symptoms have improved. jr8
--- NOTE | 2019-02-23 19:59 | ER ---
Nurse's Notes [facility] Name: Nelly Casey Age: 48 yrs Sex: Female : 1970 Arrival Date: 02/23/2019 Time: 15:54 Bed 16 Private MD: Christian Chan H Diagnosis: Low back pain;Vomiting Presentation: 02/23 15:58 Presenting complaint: Patient states: pain to L low back that radiates down L leg. Pt ss reports that pain has been ongoing for 2 months and has been seen by PCP and given multiple medications, which reportedly take the edge off, but does not give much relief. Transition of care: patient was not received from another setting of care. Onset of symptoms was December 2018. Risk Assessment: Do you want to hurt yourself or someone else? Patient reports no desire to harm self or others. Initial Sepsis Screen: Does the patient meet any 2 criteria? No. Patient's initial sepsis screen is negative. Does the patient have a suspected source of infection? No. Patient's initial sepsis screen is negative. Care prior to arrival: None. 15:58 Method Of Arrival: Ambulatory ss 15:58 Acuity: ROHINI 4 ss Triage Assessment: 16:46 General: Appears in no apparent distress. uncomfortable, Behavior is calm, cooperative, hj appropriate for age. Pain: Complains of pain in back, right leg and left leg. EENT: No signs and/or symptoms were reported regarding the EENT system. Neuro: Level of Consciousness is awake, alert, obeys commands, Oriented to person, place, time, situation, Appropriate for age. Cardiovascular: Capillary refill < 3 seconds Patient's skin is warm and dry. Respiratory: Airway is patent Respiratory effort is even, unlabored, Respiratory pattern is regular, symmetrical. GI: No signs and/or symptoms were reported involving the gastrointestinal system. : No signs and/or symptoms were reported regarding the genitourinary system. Derm: No signs and/or symptoms reported regarding the dermatologic system. Musculoskeletal: Circulation, motion, and sensation intact. Capillary refill < 3 seconds. [employer]: 18:36 LMP N/A - Hysterectomy hb Historical: - Allergies: 16:01 No Known Allergies; ss - Home Meds: 16:55 Wellbutrin Oral [Active]; hj - PMHx: 16:01 Depression; GERD; IBS; ss - PSHx: 16:01 Disc surgery; ; Hysterectomy; ss - Immunization history:: Adult Immunizations up to date. - Social history:: Smoking status: Patient uses tobacco products, smokes one-half pack cigarettes per day. - Ebola Screening: : Patient denies exposure to infectious person Patient denies travel to an Ebola-affected area in the 21 days before illness onset. Screenin:46 Abuse screen: Denies threats or abuse. Denies injuries from another. Nutritional hj screening: No deficits noted. Tuberculosis screening: No symptoms or risk factors identified. Fall Risk None identified. Assessment: 16:46 General: Appears in no apparent distress. uncomfortable, Behavior is calm, cooperative, hj appropriate for age. Pain: Complains of pain in right leg and left leg and back. Neuro: Level of Consciousness is awake, alert, obeys commands, Oriented to person, place, time, situation, Appropriate for age. Cardiovascular: Capillary refill < 3 seconds Patient's skin is warm and dry. Respiratory: Airway is patent Respiratory effort is even, unlabored, Respiratory pattern is regular, symmetrical. GI: No signs and/or symptoms were reported involving the gastrointestinal system. : No signs and/or symptoms were reported regarding the genitourinary system. EENT: No signs and/or symptoms were reported regarding the EENT system. Derm: No signs and/or symptoms reported regarding the dermatologic system. Musculoskeletal: Reports pain in left leg and right leg and back. 17:24 Reassessment: Patient and/or family updated on plan of care and expected duration. Pain hj level reassessed. Patient is alert, oriented x 3, equal unlabored respirations, skin warm/dry/pink. awaiting provider to sign up; CN informed;. 18:48 Reassessment: Patient and/or family updated on plan of care and expected duration. Pain hj level reassessed. Patient is alert, oriented x 3, equal unlabored respirations, skin warm/dry/pink. awaiting POC;. 19:15 Reassessment: Patient appears in no apparent distress at this time. Patient and/or jd3 family updated on plan of care and expected duration. Pain level reassessed. Patient is alert, oriented x 3, equal unlabored respirations, skin warm/dry/pink. Patient states feeling better. 20:25 Reassessment: Patient appears in no apparent distress at this time. Patient and/or jd3 family updated on plan of care and expected duration. Pain level reassessed. Patient is alert, oriented x 3, equal unlabored respirations, skin warm/dry/pink. Patient states feeling better. Vital Signs: 15:57 BP 130 / 77; Pulse 98; Resp 16; Temp 99.0(TE); Pulse Ox 99% on R/A; Weight 70.31 kg; ss Height 5 ft. 6 in. (167.64 cm); Pain 8/10; 16:50 BP 123 / 79; Pulse 81; Resp 18; Pulse Ox 99% on R/A; Pain 8/10; hj 18:48 BP 117 / 67; Pulse 69; Resp 18; Pulse Ox 99% on R/A; hj 19:05 BP 107 / 65; Pulse 73; Resp 17; Temp 98.6; Pulse Ox 100% on R/A; Pain 5/10; rr5 19:49 BP 144 / 93; Pulse 66; Resp 17 S; Pulse Ox 99% on R/A; jd3 15:57 Body Mass Index 25.02 (70.31 kg, 167.64 cm) ED Course: 15:54 Patient arrived in ED. mr 15:55 Christian Chan DO is Private Physician. mr 15:57 Arm band placed on right wrist. ss 16:00 Triage completed. ss 16:45 Ted Santillan, RN is Primary Nurse. hj 16:47 Patient has correct armband on for positive identification. Bed in low position. Call hj light in reach. Side rails up X 1. 17:32 [facility] Moffett [facility] jr8 17:32 Navi Cedillo MD is Attending Physician. jr8 20:26 No provider procedures requiring assistance completed. Patient did not have IV access jd3 during this emergency room visit. Administered Medications: 18:35 Drug: Zofran 4 mg Route: PO; hb 18:51 Follow up: Response: No adverse reaction; Nausea is decreased hj 18:35 Drug: TORadol - Ketorolac 15 mg Route: IM; Site: left deltoid; hb 18:50 Follow up: Response: No adverse reaction; Pain is decreased hj 18:35 Drug: Flexeril 10 mg Route: PO; hb 18:50 Follow up: Response: No adverse reaction Outcome: 19:58 Discharge ordered by . romario 20:26 Discharged to home ambulatory, with family. jd3 20:26 Condition: stable 20:26 Discharge instructions given to patient, family, Instructed on discharge instructions, follow up and referral plans. medication usage, Demonstrated understanding of instructions, follow-up care, medications. 20:27 Patient left the ED. jd3 Signatures: Jess Blanca Shelby, RN RN Renzo Moffett PA PA jrTed Orantes RN RN Sahara Parker RN RN Ash Dorantes RN RN jd3 Atilio Rose RN RN rr5 Corrections: (The following items were deleted from the chart) 16:50 16:50 BP 123 / 79; Pulse 81bpm; Resp 18bpm; Pulse Ox 99% RA; [facility]
[2019-02-23 21:16] VITALS: TEMP 98.6
[2019-02-23 21:17] VITALS: BP 144/93; O2SAT 99
== END 2019-02-23 20:27 | disposition home or self-care (01) ==
LOC: ER 15:49
DX: M54.5 Low back pain (principal); R11.2 Nausea with vomiting, unspecified; F32.9 Major depressive disorder, single episode, unspecified; K21.9 Gastro-esophageal reflux disease without esophagitis; K58.9 Irritable bowel syndrome, unspecified; F17.210 Nicotine dependence, cigarettes, uncomplicated
CPT/HCPCS: 81003; 81015; 96372; 99283